=== PATIENT | male | born 1965 | race Caucasian/White ===

== ENCOUNTER 2023-05-17 04:13 | Day surgery (SDC) | payer OTHER ==
[2023-05-16 10:58] VITALS: BMI 26.0
[2023-05-17] MEDS ORDERED: MIDAZOLAM HCL 2 MG/2 ML SINGLE DOSE VIAL ONE (13:52)
[2023-05-17] MEDS ORDERED: FENTANYL CITRATE/PF 50 MCG/ML VIAL ONE ×3 (13:52→15:39)
[2023-05-17] MEDS ORDERED: PROPOFOL 20 ML ONE (13:53)
[2023-05-17] MEDS: ceFAZolin SODIUM 1 GM VIAL IVPB ONE (14:10)
[2023-05-17] MEDS: ACETAMINOPHEN 1000 MG/100 ML BAG IVPB ONE (15:45)
[2023-05-17] MEDS: ACETAMINOPHEN INJECTION 100 ML IVPB ONE (15:45)
[2023-05-17] MEDS: PHENAZOPYRIDINE HCL 100 MG TABLET (FP) PO SCH (17:00)
[2023-05-17] MEDS: CEFAZOLIN 1 GM in DEXTROSE 5%-WATER - 50 ML IVPB SCH (20:15)
[2023-05-17] MEDS: ceFAZolin SODIUM 1 GM VIAL ONE (20:15)
[2023-05-17] MEDS: DEXTROSE 5%-0.45% SALINE 1,000 ML IV SCH (21:23)
[2023-05-17] MEDS: oxyCODONE HCL 5 MG TABLET PO PRN (21:24)
[2023-05-18 00:41] VITALS: RESP 18
[2023-05-18] MEDS: CEFAZOLIN 1 GM in DEXTROSE 5%-WATER - 50 ML IVPB SCH (07:08)
[2023-05-18] MEDS: LACTATED RINGERS SOLUTION 1,000 ML IV SCH (07:08)
[2023-05-18 07:21] VITALS: BP 109/60; PULSE 65; TEMP 98.3
[2023-05-18 09:59] LABS: BASO % 0.1 % (0-2.0); EOS % 0.3 % (0-4.5); HEMATOCRIT 35.1 % (35.4-49); HEMOGLOBIN 12.1 GM/dL (11.7-16.9); LYMPH % 11.4 % (8-40); MCH 28.5 pg (25.7-33.7); MCHC 34.3 g/dl (32.0-35.9); MEAN CELL VOLUME 83.1 fl (80-96); MEAN PLT VOLUME 7.2 fl (7.5-11.1); MONO % 7.5 % (3.8-10.2); NEUT % 80.7 % (42.8-82.8); PLATELET COUNT 330 10^3/uL (134-434); RBC 4.22 M/mm3 (4.00-5.60); RDW 13.3 % (11.9-15.9)
[2023-05-18 10:06] LABS: POTASSIUM 3.9 mmol/L (3.5-5.1)
[2023-05-18 10:08] LABS: BLOOD UREA NITROGEN 21.3 mg/dL (7-18)
[2023-05-18 10:10] LABS: CALCIUM 8.6 mg/dL (8.5-10.1)
== END 2023-05-18 14:25 | disposition home or self-care (01) ==
LOC: JASUSAT 04:13 → JASU-SURG 04:13 → J5S 20:58 → JASUSAT 05-18 14:25
PROVIDERS: ATTEND Urology
PROC: 0VT08ZZ Resection of Prostate, Via Natural or Artificial Opening Endoscopic (ICD-10-PCS; principal; 2023-05-17 14:00)
PROC: 0VB08ZX Excision of Prostate, Via Natural or Artificial Opening Endoscopic, Diagnostic (ICD-10-PCS; 2023-05-17 14:00)
DX: C61 Malignant neoplasm of prostate (principal); N40.0 Benign prostatic hyperplasia without lower urinary tract symptoms
CPT/HCPCS: 36415; 76998-TC; 80048; 85025; 88305-TC; 88307-TC; 88331-TC; 88341-TC; 88342-TC; 94760; C1769; J0131